=== PATIENT | male | born 1995 | race Caucasian/White ===

== ENCOUNTER 2020-09-30 06:37 | Emergency (ER) | payer OTHER, SELFPAY ==
[~2020-09-30] VITALS: Ht 190.5 cm; Wt 97.4 kg
--- NOTE | 2020-09-30 07:36 | REPVR ---
PROCEDURE INFORMATION: Exam: CT Head Without Contrast Exam date and time: 09/30/2020 7:18 AM Age: 25 years old Clinical indication: Syncope and collapse; Additional info: Loc syncope TECHNIQUE: Imaging protocol: Computed tomography of the head without contrast. Radiation optimization: All CT scans at this facility use at least one of these dose optimization techniques: automated exposure control; mA and/or kV adjustment per patient size (includes targeted exams where dose is matched to clinical indication); or iterative reconstruction. COMPARISON: No relevant prior studies available. FINDINGS: Brain: Normal. No hemorrhage. Unremarkable white matter. No mass effect. Cerebral ventricles: No ventriculomegaly. Bones/joints: Unremarkable. No acute fracture. Paranasal sinuses: Visualized sinuses are unremarkable. No fluid levels. Mastoid air cells: Visualized mastoid air cells are well aerated. Soft tissues: Unremarkable. IMPRESSION: No acute intracranial abnormality. Electronically signed by: Moisés Jimenez On 09/30/2020 07:36:19 AM
[2020-09-30] MEDS ORDERED: NS 1,000 ML IV ONE (07:40)
[2020-09-30 07:55] LABS: BASO % 0.2 % (0.0-1.0); EOS # 0.1 10^3/uL (0.0-0.5); EOS % 1.9 % (0.0-3.0); HEMATOCRIT 43.6 % (42.0-52.0); HEMOGLOBIN 14.8 g/dl (13.5-17.5); LYMPH # 1.7 10^3/uL (1.5-5.0); LYMPH % 38.6 % (24.0-44.0); MEAN CORPUSCULAR HEMOGLOBIN 32.6 pg (27.0-33.0); MEAN CORPUSCULAR HGB CONC 33.9 g/dl (32.0-36.5); MONO # 0.3 10^3/uL (0.0-0.8); MONO % 7.9 % (2.0-8.0); NEUTROPHILS # 2.2 10^3/uL (1.5-8.5); NEUTROPHILS % 51.2 % (36.0-66.0); PLATELET COUNT, AUTOMATED 141 10^3/uL (150-450); RED BLOOD COUNT 4.54 10^6/uL (4.30-6.10); WHITE BLOOD COUNT 4.3 10^3/uL (4.0-10.0)
[2020-09-30 08:25] LABS: ALBUMIN 3.5 GM/DL (3.2-5.2); ALT/SGPT 22 U/L (12-78); BILIRUBIN,DIRECT 0.3 MG/DL (0.0-0.2); BILIRUBIN,TOTAL 0.9 MG/DL (0.2-1.0); CK-MB VALUE MASS < 1.0 NG/ML (<3.6); CPK CREATINE PHOSPHOKINASE 63 U/L (39-308); FREE T4 0.98 NG/DL (0.76-1.46); LIPASE 129 U/L (73-393); MB/CK RELATIVE INDEX 1.59 (< OR =4); THYROID STIMULATING HORMONE 0.903 uIU/ML (0.358-3.740); TOTAL PROTEIN 6.3 GM/DL (6.4-8.2); TROPONIN I < 0.02 NG/ML (< 0.10)
[2020-09-30 08:38] VITALS: BP 113/65
--- NOTE | 2020-09-30 17:36 | ECGEPIP ---
[facility] - ED Test Date: 2020-09-30 Pat Name: NAHUM MCCLELLAN Department: Room: - Gender: Male Chemical Engineering Technician: CHATO : 1995 Requested By: YENI Yoon PA-C Order Number: [id number] Reading MD: Cassidy Garber Measurements Intervals [place] Rate: 64 P: 42 RI: 180 QRS: 19 QRSD: 100 T: 4 QT: 372 QTc: 383 Interpretive Statements Normal sinus rhythm No prior Electronically Signed on 09-30-2020 17:36:33 EDT by Cassidy Garber
== END 2020-09-30 08:51 | disposition home or self-care (01) ==
LOC: M ED 06:37
DX: R55 Syncope and collapse (principal)